=== PATIENT | female | born 1955 | race Caucasian/White ===

== ENCOUNTER → 2020-12-27 11:50 | Outpatient (CLI) | payer OTHER, SELFPAY ==
[2020-12-27 13:37] LABS: COVID19 -Nasal RAPID Negative (Negative)
== END ==
PROVIDERS: Visit Provider Nurse Practitioner
DX: Z01.812 Encounter for preprocedural laboratory examination (principal); Z20.822 Contact with and (suspected) exposure to COVID-19
CPT/HCPCS: 87635

== ENCOUNTER 2020-12-28 12:34 | Day surgery (SDC) | payer OTHER, SELFPAY ==
[2020-12-27 08:55] VITALS: BMI 31.2
[2020-12-28] VITALS (17 sets, daily range): BP systolic 131–191; BP diastolic 81–109; PULSE 63–104; RESP 12–22; TEMP 36.2–36.9; O2SAT 95–99; BMI 31.2
[2020-12-28] MEDS: CELECOXIB 200 MG CAPSULE 400 MG PO (13:08)
[2020-12-28] MEDS: ACETAMINOPHEN 325 MG TABLET 975 MG PO (13:09)
[2020-12-28] MEDS: GABAPENTIN 300 MG CAPSULE PO (13:09)
[2020-12-28] MEDS: SCOPOLAMINE 1 PATCH TOP (13:10)
[2020-12-28] MEDS: LACTATED RINGERS 1,000 ML 42 ML IV ×2 (13:33→17:13)
[2020-12-28] MEDS: CEFAZOLIN 1 GM VIAL 2 GM IV (15:51)
--- NOTE | 2020-12-28 16:06 | PM.PROC.1 ---
Procedures Date/Time Date of procedure: 12/28/20 Time of procedure: 15:29 Nerve Block Time out performed: Yes Local anesthetic used: bupivacaine 0.5% Location of anesthetic used: right superficial cervical plexus Amount of anesthesia used (mL): 7 Nerve blocks: other Procedure successful: Yes Patient tolerated procedure: well and no complications Complications: none Additional comments: Patient was positioned with IV and monitors in OR, site was prepped with chloroprep, timeout performed. Block was performed using landmark technique. No acute complications.
--- NOTE | 2020-12-28 16:09 | SUR.OPER ---
Beach chair with Schlein shoulder positioner. Lower body on padded OR bed. Head in foam padded head cradle, secured with straps. Non-operative arm secured <90 degrees abduction, gel pad under lower arm. Two Pillow under knees. Safety belt at thigh. Cloth tape over blanket over lower legs, gel pad under bilateral heels.Operative arm in control of the Surgeon.
[2020-12-28] MEDS: BUPIVACAINE 0.5% (PF) VIAL 30 ML INJ (16:38)
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
--- NOTE | 2020-12-28 17:25 | DI.RAD.S_ITS ---
PROCEDURE: XR CLAVICLE RT INDICATIONS: FX REPAIR TECHNIQUE: 2 views of the clavicle were acquired. COMPARISON: None. FINDINGS: Spot fluoroscopic radiographs demonstrate expected intraoperative alignment of plate and screw fixation of the right clavicle Dictated by: Hunter Milan M.D. on 12/29/2020 at 10:38 Approved by: Hunter Milan M.D. on 12/29/2020 at 10:38
[2020-12-28] MEDS: fentaNYL 100 MCG/2 ML INJ IV ×4 (18:00→18:11)
[2020-12-28] MEDS: HYDROMORPHONE 2 MG INJ IV ×3 (18:17→18:30)
[2020-12-28] MEDS: OXYCODONE IR 5 MG TABLET PO (18:18)
== END 2020-12-28 19:30 | disposition home or self-care (01) ==
PROVIDERS: Referring Provider Orthopaedic Surgery; Visit Provider Orthopaedic Surgery
PROC: 0PS904Z Reposition Right Clavicle with Internal Fixation Device, Open Approach (ICD-10-PCS; CPT 23515; principal; 2020-12-28 14:30)
DX: S42.021A Displaced fracture of shaft of right clavicle, initial encounter for closed fracture (principal); V29.3XXA Motorcycle rider (driver) (passenger) injured in unspecified nontraffic accident, initial encounter
CPT/HCPCS: 23515; 73000; 76000; J0330; J0690; J1100; J1170; J2250; J2405; J2704; J3010

== ENCOUNTER → 2021-01-10 06:45 | Outpatient (CLI) | payer OTHER, SELFPAY ==
--- NOTE | 2021-01-10 | DI.US.S_ITS ---
PROCEDURE: US ABDOMEN LIMITED INDICATIONS: RIGHT UPPER QUADRANT PAIN TECHNIQUE: Real-time focused scanning was performed of the abdomen, with image documentation. COMPARISON: [facility], CT, ABDOMEN/PELVIS WITH CONTRAST, 10/11/2016, 12:13. FINDINGS: The liver is normal in size and demonstrates no focal lesions. No findings of gallstones or sludge are seen. The gallbladder wall is not thickened, measuring 3 mm or less. No specific pericholecystic fluid is seen. The sonographic Devine sign is negative. There is no biliary dilatation, the common bile duct measures 4 mm. No significant pancreatic abnormality is seen on these images. IMPRESSION: The gallbladder demonstrates a normal sonographic appearance. No biliary dilatation is seen. Dictated by: Orlando Bull M.D. on 01/10/2021 at 8:46 Approved by: Orlando Bull M.D. on 01/10/2021 at 8:47
== END ==
PROVIDERS: PCP Registered Nurse; Referring Provider Registered Nurse; Visit Provider Registered Nurse
DX: R10.11 Right upper quadrant pain (principal)
CPT/HCPCS: 76705

== ENCOUNTER → 2022-01-03 12:42 | Outpatient (CLI) | payer OTHER, SELFPAY ==
--- NOTE | 2022-01-03 12:44 | DI.MRI.S_ITS ---
PROCEDURE: MR LUMBAR SPINE WO CON INDICATIONS: Low back pain, unspecified TECHNIQUE: Noncontrast sagittal T1 spin echo and T2 fast echo, sagittal STIR, and T2 fast spin echo through the lumbar spine. In cases with scoliosis, additional coronal T2 fast spin echo may be performed. COMPARISON: None. FINDINGS: Image quality: Excellent. Alignment and Curvature: There is normal bony alignment. Bone Marrow: Marrow is of normal overall signal. No acute vertebral body compression fractures. Spinal Cord: Conus medullaris terminates at the L1 level. Visualized cord demonstrates normal signal and size. Paraspinous Soft Tissues: No paravertebral masses. T12-L1: Normal appearance. L1-L2: Loss of disc signal. No significant disc bulge, canal stenosis or neural foraminal narrowing. L2-L3: Loss of disc signal. Bilateral facet arthrosis is seen. No significant disc bulge, canal stenosis or neural foraminal narrowing.. L3-L4: Loss of disc signal. Mild diffuse disc bulge and bilateral facet arthrosis is seen with hypertrophy of ligamentum flavum. No significant central canal stenosis or neural foraminal narrowing. L4-L5: Loss of disc signal is seen. Bilateral facet arthrosis and mild diffuse disc bulge is seen causing very mild central canal stenosis, no significant neural foraminal narrowing. L5-S1: Normal appearance. IMPRESSION: 1. Mild degenerative disc disease at L2-3 through L4-5 levels as described above with mild central canal stenosis at L4-5 level. No significant neural foraminal narrowing. 2. No marrow edema. No compression fracture or spondylolisthesis. Dictated by: Pablito Vance M.D. on 01/03/2022 at 17:14 Approved by: Pablito Vance M.D. on 01/03/2022 at 17:17
== END ==
PROVIDERS: PCP Registered Nurse; Referring Provider Orthopaedic Surgery; Visit Provider Orthopaedic Surgery
DX: M54.50 Low back pain, unspecified (principal); M51.36 Other intervertebral disc degeneration, lumbar region; M48.061 Spinal stenosis, lumbar region without neurogenic claudication
CPT/HCPCS: 72148